=== PATIENT | male | born 1995 | race Caucasian/White ===

== ENCOUNTER 2020-03-03 19:10 | Emergency (ER) | payer MEDICAID, SELFPAY ==
[2020-03-03 19:12] VITALS: BP 164/66; PULSE 94; RESP 16; TEMP 37.2; O2SAT 97; BMI 33.4
--- NOTE | 2020-03-03 19:20 | RAD_ITS ---
STUDY: X-RAY - ACUTE ABDOMINAL SERIES REASON FOR EXAM: Male, 25 years old. Constipation x3 days. TECHNIQUE: Single view of the chest. Supine, and erect view(s) of the abdomen were obtained. COMPARISON: Chest 02/06/2017 FINDINGS: The lungs are clear and expanded. Normal size heart. Normal mediastinum and vijay. Normal visualized pulmonary arteries. Normal visualized aortic arch and descending thoracic aorta. There is a non-specific bowel gas pattern. The soft tissue structures of the abdomen and pelvis are unremarkable. Normal visualized osseous structures. RAD/Acute Abdomen Inc Chest IMPRESSION: Normal x-ray examination of the chest, abdomen, and pelvis. Electronically Signed: Dameon Wong MD at 20:44 EDT Tel , Service support ,
--- NOTE | 2020-03-03 19:22 | ED.VIS.GEN ---
History of Present Illness Chief Complaint: Abd Pain Informant: Patient Onset: Yesterday Context: Gradual Onset Timing: Intermittent Current Severity: Moderate Maximum Severity: Moderate Narrative: The patient is a 25-year-old male with no significant medical history that presents to the emergency department with mid abdominal pain and constipation. The patient states that he has been having some constipation for the past 3 days. He is noticed that he had a sharp, stabbing pain in his midepigastric area. He denies cough, fever, shortness of breath. He states that he did take some stool softeners and laxatives and had a large bowel movement last night. He states that today, try to move his bowels but his stool was hard. He began to have this pain in his midepigastric area. He does admit to occasional alcohol use. He denies any history of pancreatitis. He said no prior abdominal surgery. Prior similar symptoms: No Recent Illness/Hospitalization: No Past Medical History - Allergies and Home Meds Allergies/Adverse Reactions: Allergies No Known Allergies Allergy (Verified 03/03/20 19:15) Primary Care Physician: Haseeb Gabriel MD [COURTESY STAFF PHYSICIAN] - Prior records reviewed: Yes Past Medical History: None Surgical History: no surgical history Smoking Status: Never smoker Review of Systems General: Denies: Chills, Fever, Sweats Eyes: Denies: Visual changes - bilaterally, Diplopia ENT: Denies: Rhinorrhea, Sore throat Cardiovascular: Denies: Chest pain, Palpitations Respiratory: Denies: Dyspnea, Cough, Dyspnea on exertion Gastrointestinal: Reports: Abdominal pain, Nausea, Constipation. Denies: Vomiting, Diarrhea, Melena, Hematochezia Genitourinary: Denies: Dysuria, Hematuria, Frequency Musculoskeletal: Denies: Back pain, Extremity Pain Skin: Denies: Rash, Wounds Neurological: Denies: Headache, Weakness, Numbness Physical Exam Vital Signs/Narrative: Vital Signs Temp Pulse Resp BP Pulse Ox 03/03/20 19:12 98.9 F 94 16 164/66 H 97 Inital Vital Signs reviewed: Yes General: Well nourished, Well developed, No Acute Distress Head: Normocephalic, Atraumatic Eyes: Perrl, EOMI ENT: Moist mucous membranes, No rhinorrhea Neck: Supple, Nontender Cardiovascular: Regular rate, Regular rhythm, No murmurs Respiratory: No distress, CTA bilaterally, Chest nontender Abdomen: Soft, Nondistended, Normal bowel sounds, Tender. Negative for: Guarding, Rebound tenderness Back: Nontender, Normal Inspection Extremities: Nontender, No edema Skin: Normal color, No rash Neurological: Alert, Oriented x3, Cranial nerves II-XII grossly intact, Normal Strength, Normal Sensation Psychological: Normal affect, Normal Mood Diagnostic/Tx/Re-eval Clinical Impression(s) from Imaging Studies Acute Abdomen Series 03/03/20 19:20 IMPRESSION: Normal x-ray examination of the chest, abdomen, and pelvis. Electronically Signed: Dameon Wong MD at 20:44 EDT Tel , Service support , Abnormal Lab Results 03/03/20 03/03/20 20:07 20:07 WBC 12.7 H RBC 5.19 Hgb 15.1 Hct 45.4 MCV 87.5 MCH 29.1 MCHC 33.3 RDW Std Deviation 39.1 RDW Coeff of Raul 12.3 Plt Count 313 MPV 9.1 Immature Gran % (Auto) 0.600 Neut % (Auto) 60.5 Lymph % (Auto) 29.0 [place] % (Auto) 8.8 Eos % (Auto) 0.7 Baso % (Auto) 0.4 Absolute Neuts (auto) 7.7 Absolute Lymphs (auto) 3.68 Nucleated RBC % 0 Sodium 141 Potassium 4.0 Chloride 107 Carbon Dioxide 30.0 Anion Gap 4 L BUN 18 Creatinine 0.92 Estim Creat Clear Calc 108.84 Est GFR (MDRD) Af Amer 126 Est GFR (MDRD) Non-Af 104 BUN/Creatinine Ratio 19.5 Glucose 86 Calcium 9.0 Total Bilirubin 0.50 AST 21 ALT 47 Alkaline Phosphatase 86 Total Protein 7.7 Albumin 4.2 Globulin 3.5 Albumin/Globulin Ratio 1.2 Lipase 93 - Medical Decision Making The patient presents with midepigastric abdominal pain, nausea, and constipation. He denies any fevers or chills. He does have mild reproducible pain in the midepigastric area. There is no pain in the right upper quadrant. IV was established. Patient was given fluids and antiemetics. This did improve her symptoms. Screening labs were obtained were unremarkable. X-ray shows no evidence of obstruction. On reevaluation, his abdomen is soft and nontender. At this point, I am unsure of the exact etiology of his pain. I do feel that this is more likely gastritis or even ulcer. I am going to treat him symptomatically. He was counseled on concerning symptoms and reasons to return. He will be discharged home. Impression 1. Midepigastric pain ED Disposition - Plan for ED Patient: Disposition: Home or Assisted Living Instructions: ED PEPTIC ULCER vs GASTRITIS, ED Unknown Causes of Abdominal Pain Male Prescriptions: Dicyclomine HCl [Bentyl] 20 mg PO TIDAC #20 cap Prescription Printed Famotidine [Pepcid] 20 mg PO BID #28 tab Prescription Printed Ondansetron [Zofran Odt] 4 mg PO Q8H PRN PRN #10 tab PRN Reason: Nausea Prescription Printed Referrals: Haseeb Gabriel MD [COURTESY STAFF PHYSICIAN] -
[2020-03-03] MEDS: 0.9% Normal Saline 1,000 ML 1000 ML IV (20:05)
[2020-03-03 20:16] LABS: Absolute Lymphocyte Count 3.68 X10^3/uL (0.83-4.51); Absolute Neutrophil Count 7.7 X10^3/uL (2.0-7.7); Basophil# 0.05 X10^3/uL; Basophil% 0.4 % (0-1); Eosinophil# 0.09 X10^3/uL; Eosinophils% 0.7 % (0-5); Hematocrit 45.4 % (40-54); Hemoglobin 15.1 g/dL (13.0-16.5); Lymphocyte # 3.68 X10^3/ul (4.0); Mean Corp Hgb Conc 33.3 g/dL (32-36); Mean Corpuscular Hgb 29.1 pg (27.0-32.0); Mean Corpuscular Volume 87.5 fL (80-94); Mean Platelet Vol. 9.1 fl (6.2-12.0); Monocyte# 1.12 X10^3/uL; Monocyte% 8.8 % (0-10); NRBC Flagged by Analyzer 0 % (0-5); Neutrophil % 60.5 % (47-70); Platelet Count 313 K/mm3 (150-450); RBC Distribution Width CV 12.3 % (11.6-14.6); RBC Distribution Width SD 39.1 fl (35.1-43.9); Red Blood Count 5.19 M/mm3 (4.6-6.2); White Blood Count 12.7 K/mm3 (4.4-11.0)
[2020-03-03 20:31] LABS: ALB/GLOB Ratio 1.2 RATIO (0.9-2.4); AST(SGOT) 21 U/L (15-37); Alanine Aminotransfer ALT/SGPT 47 U/L (16-61); Albumin, Serum 4.2 g/dL (3.2-5.0); Alkaline Phosphatase 86 U/L (45-117); Anion Gap 4 (5-15); BUN 18 mg/dL (7-18); BUN/Creat Ratio 19.5 RATIO (10-20); Chloride 107 mmol/L (98-107); Creatinine, Serum 0.92 mg/dL (0.70-1.30); EST Glomerular Filtration Rate 104 mL/min (>60); Est Glom Filt Rate - Afr Amer 126 mL/min (>60); Estimated Creatinine Clearance 108.84 ml/min; Globulin 3.5 g/dL (2.2-4.2); Glucose 86 mg/dL (74-106); Lipase 93 U/L (73-393); Protein, Total 7.7 g/dL (6.4-8.2); Sodium Level 141 mmol/L (136-145)
[2020-03-03 21:17] VITALS: BP 118/68; PULSE 80; RESP 17; O2SAT 99
== END 2020-03-03 21:18 | disposition home or self-care (01) ==
LOC: ED 19:34
PROVIDERS: Emergency Provider Emergency Medicine; PCP Family Medicine
DX: R10.13 Epigastric pain (principal); K59.00 Constipation, unspecified
CPT/HCPCS: 74022; 80053; 83690; 85025; 99283; J7030; A4216; J2405

== ENCOUNTER → 2020-05-21 16:01 | Outpatient (CLI) | payer MEDICAID, SELFPAY ==
--- NOTE | 2020-05-21 13:00 | VAS_PTH ---
PATIENT: ELLIE MARTINEZ LOC: [facility] U#:[id number] AGE/SX: 30/M ROOM: RE05/21/[address]: Dr. Jose Daly MD : 1995 BED: DIS: SPEC #: [id number] RECD: 05/21/20 15:52 STATUS: PALMER POLO #: [id number] MAXIMILIAN: 05/21/20 13:[address]: Jose Daly DEPT: SURGICAL PATHOLOGY RECD BY: Kj Sy ENTERED: 05/22/20 07:33 SP TYPE: VAS OTHR DR: Dr. Maciel Wheeler MD Tissues: A - Vas deferens, NOS B - Vas deferens, NOS Procedures: Surgery Specimen Level II HEADER OPERATION: Bilateral partial vasectomy PRE-OP DIAGNOSIS: Sterilization TISSUE SUBMITTED: A - Left vas deferens, B - Right vas deferens MICROSCOPIC DIAGNOSIS A. Left vas deferens, segmental vasectomy: Complete cross-section of vas deferens. B. Right vas deferens, segmental vasectomy: Complete cross-section of vas deferens. AM:phil 05/25/20 MICROSCOPIC DESCRIPTION Slides are reviewed. GROSS DESCRIPTION A - Received is one container designated left vas deferens. The specimen consists of a tubular segment of wood soft tissue measuring 1 cm in length and 0.3 cm in diameter. The entire specimen is submitted in one cassette. It will be sectioned at the time of embedding. B - Received is one container designated right vas deferens. The specimen consists of a tubular segment of wood soft tissue measuring 0.8 cm in length and 0.3 cm in diameter. The entire specimen is submitted in one cassette. It will be sectioned at the time of embedding. / SJ:phil 05/22/20 TC:[address] [facility]: [id number] x2
[2020-05-21 13:15] VITALS: BMI 33.4
== END ==
PROVIDERS: PCP Family Medicine; Referring Provider Surgery; Visit Provider Surgery
DX: Z30.2 Encounter for sterilization (principal)
CPT/HCPCS: 88302

== ENCOUNTER → 2020-07-11 09:56 | Outpatient (CLI) | payer MEDICAID, SELFPAY ==
[2020-05-21 13:15] VITALS: BMI 33.4
[2020-07-13 13:01] LABS: Semen Analysis Post Vas ABSENT
== END ==
PROVIDERS: PCP Family Medicine; Visit Provider Surgery
DX: Z30.2 Encounter for sterilization (principal)
CPT/HCPCS: 89321